=== PATIENT | female | born 1960 | race Caucasian/White ===

== ENCOUNTER 2017-03-27 16:02 | Emergency (ER) | payer MEDICARE, MEDICAID ==
[2017-03-27 17:45] VITALS: BP 179/86
--- NOTE | 2017-03-27 18:40 | UC ---
Respiratory Complaint HPI - HPI Summary HPI Summary: Pt c/o cough, wheezing and generalized malaise X 3 days. - History of Current Complaint Chief Complaint: UCRespiratory Stated Complaint: COUGH,HEADACHE Time Seen by Provider: 03/27/17 17:34 Hx Obtained From: Patient Hx Last Menstrual Period: unknown ?: No Onset/Duration: Sudden Onset, Lasting Days Timing: Intermittent Episodes Severity Initially: Mild Severity Currently: Mild Pain Intensity: 0 Pain Scale Used: 0-10 Numeric Character: Cough: Nonproductive Aggravating Factors: Exertion, Deep Breaths, Recumbent Position Alleviating Factors: Nothing Associated Signs And Symptoms: Positive: Wheezing, URI - Risk Factors Pulmonary Embolism Risk Factors: Negative Cardiac Risk Factors: Negative Pseudomonas Risk Factors: Negative Tuberculosis Risk Factors: Negative - Allergies/Home Medications Allergies/Adverse Reactions: Allergies Allergy/AdvReac Type Severity Reaction Status Date / Time Penicillins Allergy Intermediate Bleeding Verified 03/27/17 17:44 Rash Sulfa Drugs Allergy Intermediate Bleeding Verified 03/27/17 17:44 Rash PMH/Surg Hx/FS Hx/Imm Hx Previously Healthy: Yes - obese - Surgical History Surgical History: Yes Surgery Procedure, Year, and Place: Cholecystectomy, , [facility]. Hysterectomy , 2011, [facility]. Tonsillectomy, 1974, [facility] - Family History Known Family History: Positive: Cardiac Disease - Social History Occupation: Employed Full-time Lives: With Family Alcohol Use: None Substance Use Type: None Smoking Status (MU): Former Smoker Type: Cigarettes Amount Used/How Often: 2 ppd Length of Time of Smoking/Using Tobacco: 33 yrs Have You Smoked in the Last Year: No When Did the Patient Quit Smoking/Using Tobacco: 2001 Review of Systems Constitutional: Chills, Fatigue Skin: Negative Eyes: Negative ENT: Sore Throat, Other - nasal congestion Respiratory: Cough Cardiovascular: Negative Gastrointestinal: Negative Genitourinary: Negative Motor: Negative Neurovascular: Negative Musculoskeletal: Negative Neurological: Negative Psychological: Negative Is Patient Immunocompromised?: No All Other Systems Reviewed And Are Negative: Yes Physical Exam Triage Information Reviewed: Yes Appearance: Well-Appearing Vital Signs: Initial Vital Signs Temp 97.7 F 03/27/17 17:42 Pulse 75 03/27/17 17:42 Resp 16 03/27/17 17:42 BP 179/86 03/27/17 17:42 Pulse Ox 99 03/27/17 17:42 Vital Signs Reviewed: Yes Eye Exam: Normal ENT Exam: Other ENT: Positive: Pharyngeal erythema, TM bulging - bilateral Dental Exam: Normal Neck exam: Normal Respiratory Exam: Other Respiratory: Positive: Wheezing - throughout all, fine wheezes Cardiovascular Exam: Normal Musculoskeletal Exam: Normal Neurological Exam: Normal Psychological Exam: Normal Skin Exam: Normal UC Diagnostic Evaluation - Laboratory O2 Sat by Pulse Oximetry: 99 Respiratory Course/Dx - Differential Dx/Diagnosis Differential Diagnosis/HQI/PQRI: Bronchitis, Other - uri Provider Diagnoses: bronchitis Discharge - Discharge Plan Condition: Stable Disposition: HOME Prescriptions: Albuterol HFA INHALER* [Ventolin HFA Inhaler*] 1 - 2 puff INH Q4H PRN #1 mdi PRN Reason: Sob/Wheezing Azithromycin TAB* [Zithromax TAB (Z-NICK) 250 mg #6 tabs] 2 tab PO .TODAY, THEN 1 DAILY #1 nick predniSONE TAB* [Deltasone TAB*] 20 mg PO DAILY #4 tab Patient Education Materials: Acute Bronchitis (ED), Wheezing (ED) Referrals: Micheal Hussein DO [Primary Care Provider] - If Needed
== END 2017-03-27 18:13 | disposition home or self-care (01) ==
LOC: UCCORT 16:02
DX: J40 Bronchitis, not specified as acute or chronic (principal); Z88.2 Allergy status to sulfonamides; Z88.0 Allergy status to penicillin; Z87.891 Personal history of nicotine dependence
CPT/HCPCS: 99212; G0463